=== PATIENT | female | born 1950 ===

== ENCOUNTER 2021-04-27 09:21 | Outpatient (CLI) | payer OTHER ==
[~2021-04-27 09:21] MED LIST: NABUMETONE500 MG PO; PERCOCET 5/3251 TAB PO
== END 2021-04-27 09:35 | disposition home or self-care (01) ==
LOC: RAD 09:21
PROVIDERS: ATTEND Orthopaedic Surgery
DX: M25.561 Pain in right knee (principal); E04.1 Nontoxic single thyroid nodule
CPT/HCPCS: 73721

== ENCOUNTER 2021-09-28 09:44 | Outpatient (CLI) | payer OTHER | END 2021-09-28 12:00 | disposition home or self-care (01) | LOC: SONOGRAMA 09:44 | PROVIDERS: ATTEND Pathology Anatomic Pathology & Clinical Pathology | DX: D34 Benign neoplasm of thyroid gland (principal); E04.8 Other specified nontoxic goiter ==

== ENCOUNTER 2025-08-04 07:29 | Outpatient (CLI) | payer OTHER | END 2025-08-04 07:35 | disposition home or self-care (01) | LOC: TOM 07:29 | PROVIDERS: ATTEND Internal Medicine | DX: K57.33 Diverticulitis of large intestine without perforation or abscess with bleeding (principal) | CPT/HCPCS: 74177; Q9965 ==